=== PATIENT | male | born 1995 | race Two or more races ===

== ENCOUNTER 2023-11-01 17:32 | Emergency (ER) | payer OTHER ==
[~2023-11-01] VITALS: Ht 193 cm; Wt 117.9 kg
[2023-11-01 18:32] LABS: HEMATOCRIT 45.3 % (39.0-48.0); HEMOGLOBIN 15.7 g/dL (13-16.00); MEAN CELL VOLUME 81.7 fL (80.0-100.00); MEAN CORPUSCULAR HEMOGLOBIN 28.4 pg (27.00-32.0); MEAN CORPUSCULAR HGB CONC 34.8 g/dl (32.0-36.0); PLATELET COUNT 240 K/uL (150-450); RED BLOOD COUNT 5.54 M/uL (4.00-6.00); RED CELL DISTRIBUTION WIDTH 13.9 % (11.5-14.5)
[2023-11-01] MEDS ORDERED: SINGULAIR10 MG PO (19:25)
[2023-11-01] MEDS ORDERED: MUCUS RELIEF D PO (19:25)
[2023-11-01] MEDS ORDERED: DEXAMETHASONE4 MG PO (19:25)
[2023-11-01] MEDS ORDERED: ZYRTEC10 MG PO (19:25)
== END 2023-11-01 21:07 | disposition home or self-care (01) ==
LOC: ER 17:32
PROVIDERS: Nurse Practitioner Family
DX: R53.81 Other malaise (principal); J06.9 Acute upper respiratory infection, unspecified; Z20.822 Contact with and (suspected) exposure to COVID-19